=== PATIENT | female | born 2000 | race Caucasian/White ===

== ENCOUNTER 2020-12-12 14:38 | Outpatient (CLI) | payer BC ==
[2020-12-12 17:29] LABS: BHCG - Serum Negative (NEGATIVE); Pregs Control Background? CLEAR/WHITE (CLR/WHITE); Pregs Control Bar Appear? YES (CONTROL BAR)
[2020-12-13 20:03] LABS: SARS-CoV-2 PCR by NAA Not Detected (NotDetected)
== END 2020-12-12 14:39 | disposition home or self-care (01) ==
LOC: LABBT 14:38
PROVIDERS: ATTEND Orthopaedic Surgery
DX: Z01.812 Encounter for preprocedural laboratory examination (principal); S52.301A Unspecified fracture of shaft of right radius, initial encounter for closed fracture; Z20.822 Contact with and (suspected) exposure to COVID-19
CPT/HCPCS: 84703; U0003; U0005

== ENCOUNTER 2020-12-14 08:57 | Day surgery (SDC) | payer OTHER, BC ==
[2020-12-13 10:09] VITALS: BMI 22.6
[2020-12-14] MEDS ORDERED: Midazolam HCl 2 mg/2 ml Vial ONE (09:16)
[2020-12-14] MEDS ORDERED: Fentanyl 100 MCG/2 ML VIAL ONE (09:16)
[2020-12-14] MEDS ORDERED: PHENYLEPHRINE-NS 100 MCG/ML 10 ML SYRINGE ONE (09:47)
[2020-12-14] MEDS ORDERED: Lidocaine 1% PF 5 ML VIAL ONE (09:47)
[2020-12-14] MEDS ORDERED: PROPOFOL 200 MG/20 ML VIAL ONE (09:47)
[2020-12-14] MEDS ORDERED: Bupivacaine HCl 0.5%/Epinephrine 1:200,000/PF 30 ml Vial ONE (09:47)
[2020-12-14] MEDS ORDERED: Ondansetron PF 4 MG/2 ML Vial ONE (09:47)
== END 2020-12-14 12:55 | disposition home or self-care (01) ==
LOC: SDC 08:57
PROVIDERS: ATTEND Orthopaedic Surgery
PROC: 0PSH04Z Reposition Right Radius with Internal Fixation Device, Open Approach (ICD-10-PCS; principal; 2020-12-14)
DX: S52.501A Unspecified fracture of the lower end of right radius, initial encounter for closed fracture (principal); V89.2XXA Person injured in unspecified motor-vehicle accident, traffic, initial encounter
CPT/HCPCS: 76000; C1713; J0690; J2250; J2405; J2704; J3010